=== PATIENT | male | born 1935 | race Caucasian/White ===

== ENCOUNTER 2019-08-10 09:11 | Day surgery (SDC) | payer OTHER ==
--- NOTE | 2019-08-08 12:46 | EKG ---
Test Date: 2019-08-08 Test Time: 10:50:11 Certified Lactation Educator: DENA MEASUREMENT RESULTS: Intervals: Rate: 76 GA: QRSD: 120 QT: 352 QTc: 396 [place]: P: GA: QRS: 33 T: 229 INTERPRETIVE STATEMENTS: Atrial fibrillation Incomplete left bundle branch block ST & T wave abnormality, consider inferolateral ischemia or digitalis effect Abnormal ECG No previous ECG available for comparison Electronically Signed On 08-08-19 12:45:24 PLATE MOLDER by Junaid Beltran
[2019-08-10] MEDS ORDERED: NA CHLORIDE 0.9% 1,000 ML ONE ×3 (09:33→15:16)
[2019-08-10] MEDS ORDERED: BUPIVACA 0.5%/EPI 0.0005%/PF 10 ML VIAL ONE (10:51)
[2019-08-10] MEDS ORDERED: PROPOFOL 200 MG/20 ML VIAL IV ONE (10:59)
[2019-08-10] MEDS ORDERED: LIDOCAINE 2% MPF 5 ML VIAL ONE (11:00)
[2019-08-10] MEDS ORDERED: ROCURONIUM 50 MG/5 ML VIAL IV ONE (11:01)
[2019-08-10] MEDS ORDERED: ONDANSETRON 4 MG/2 ML VIAL ONE (11:01)
[2019-08-10] MEDS ORDERED: FENTANYL CITR 100 MCG/2 ML ONE ×2 (11:01→12:51)
[2019-08-10] MEDS ORDERED: MIDAZOLAM HCL 2 MG/2 ML INJ ONE (11:01)
[2019-08-10] MEDS: LIDOCAINE 1% W/EPI 1:100,000 MDV 20 ML VIAL ONE ×2 (11:24→12:21)
[2019-08-10] MEDS ORDERED: Phenylephrine HCl 10 MG/ML 1 ML VIAL ONE (12:24)
[2019-08-10] MEDS ORDERED: NS 0.9% VIAL 10 ML ONE (12:25)
[2019-08-10] MEDS ORDERED: NEOSTIGMINE 1 MG/ML -5 ML ONE (12:52)
[2019-08-10] MEDS ORDERED: GLYCOPYRROLATE 0.2 MG/ML SYR ONE (12:52)
[2019-08-10 13:41] VITALS: TEMP 97.4
[2019-08-10 15:35] VITALS: BP 144/64; O2SAT 95
--- NOTE | 2019-08-11 09:47 | OP ---
Date of Procedure: 08/10/2019 Surgeon: Una Rosales MD Preoperative Diagnoses: 1. 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 lesion of uncertain behavior of left upper arm. Postoperative Diagnoses: 1. 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 lesion of uncertain behavior of left upper arm. Procedure: 1. Wide local excision with frozen section analysis of the right oriental orthodox. Total size of defect 2.5 cm 2. excision of skin lesion of left upper arm defect approximately 3 cm. Indication For Procedure: Sameer Figueroa presented with an ulcerated lesion confirmed squamous cell carcinoma of the right oriental orthodox. On clinical exam, there was a deep ulceration in the center and I was concerned about the overall depth of the lesion and recommended excision in the operating room due to the anticipated size and involvement of vasculature such as the temporal artery. The patient was in agreement. He had previously undergone some topical therapy for a lesion on the medial dorsal aspect of his left upper arm, which was scabbed and not improving and he requested concurrent excision with closure and we agreed on the proposed procedures. Description Of Procedure: The patient was brought to the operating room. He was placed under general anesthesia via oral endotracheal tube. The left arm and right oriental orthodox were prepped with Betadine and draped in a sterile fashion. The left arm was held up by the industrial technologist for exposure of the medial dorsal aspect of the arm. There was an approximately 1 cm scab covering an ulceration wide excision with a margin of normal tissue around this area was incised using a scalpel and bipolar electrocautery. The specimen was approximately 2.5 cm and included the full-thickness skin. The specimen was marked with a suture indicating 12 o'clock, which coincided with the distal most portion of the lesion and nearest to the patient's elbow. This specimen was sent to pathology for frozen section analysis. A defect was approximately 2.5 cm. A fusiform closure was elected. The triangular portions of skin at 12 and 6 o'clock were excised to allow for linear closure of the defect. The 12 o'clock portion of skin was marked with a long silk suture at the original 12 o'clock border and the specimen was set aside. The 6 o'clock portion was marked with a short suture at the original 6 o'clock margin and was also set aside. The tissue surrounding the arm was then widely undermined using the bipolar electrocautery. After adequate undermining, this allowed linear closure of the defect. The skin was closed using 3-0 Vicryl for the deep layers, and 3-0 running nylon for the superficial layers. The area was then dressed appropriately. The right oriental orthodox was noted to have ulcerated and exophytic portions of the tumor. An approximately 4 mm margin was designed around the gross tumor and the skin was incised using a 15-blade scalpel. The full-thickness skin and subcutaneous tissues were dissected and the depth of the excision included some muscle fibers of the temporalis muscle. The temporal artery branches distally were identified and cauterized using the bipolar electrocautery. The specimen was then freed from remaining soft tissue attachments, was marked with a suture indicating the superior most aspect of the lesion. A small adalgisa on the skin was made on the surgical site to ensure consistency if additional margin resection was necessary. The specimen was sent to pathology for frozen section analysis, confirmed squamous cell carcinoma with negative peripheral and deep margins. The defect was then considered approximately 2.5 cm in diameter and centimeter in depth. The options including flap closure, skin grafting, and healing by secondary intent had been discussed preoperatively with the patient. He desire to avoid secondary surgical site or undue risk and duration of surgery for closure. Therefore, wet-to-dry dressing was applied to the defect and the wound was left to heal by secondary intent. Due to the location of the lesion and surrounding alopecia of the area, although this will result in a longer healing time, it was likely to result in reasonable cosmetic result with the patient accepting a fair deal of scar. The patient was then returned to care of anesthesia for awakening extubation in the operating room, which proceeded without difficulty. Complications are none. Disposition: The patient will be discharged home later in the care of his family and follow up with Dr. Rosales in 1 to 2 weeks for evaluation of healing and removal of sutures. JENNY Voice ID: [id number] Report ID: [id number] LUIS EDUARDO
--- OUTSIDE RECORDS SUMMARY | 2019-08-13 05:04 | XMS REPORT ---
:1935 Author Organization [facility] Address [address] [place] [address] [address]. [address] [place] [address] Care Team Providers Name Role Phone Unavailable Unavailable Unavailable Problems This patient has no known problems. Allergies, Adverse Reactions, Alerts This patient has no known allergies or adverse reactions. Medications This patient has no known medications.
== END 2019-08-10 16:17 | disposition home or self-care (01) ==
LOC: OR 09:11
PROVIDERS: ATTEND Otolaryngology
PROC: 0HB1XZZ Excision of Face Skin, External Approach (ICD-10-PCS; 2019-08-10)
PROC: 0HBCXZZ Excision of Left Upper Arm Skin, External Approach (ICD-10-PCS; principal; 2019-08-10 08:15)
DX: C44.329 Squamous cell carcinoma of skin of other parts of face (principal); L57.0 Actinic keratosis; L98.499 Non-pressure chronic ulcer of skin of other sites with unspecified severity; E11.9 Type 2 diabetes mellitus without complications; I25.10 Atherosclerotic heart disease of native coronary artery without angina pectoris; Z95.810 Presence of automatic (implantable) cardiac defibrillator; Z95.1 Presence of aortocoronary bypass graft; Z79.02 Long term (current) use of antithrombotics/antiplatelets; Z88.6 Allergy status to analgesic agent; Z87.891 Personal history of nicotine dependence; Z80.9 Family history of malignant neoplasm, unspecified; Z83.3 Family history of diabetes mellitus; Z82.49 Family history of ischemic heart disease and other diseases of the circulatory system
CPT/HCPCS: 93005; 82947 ×2; 88331; 88332; 88305; 11403; 11643; J2704; J2370; J2250; J3010 ×2; J2710; J7030 ×3; J2405